=== PATIENT | male | born 1985 | race Two or more races ===

== ENCOUNTER 2022-11-01 15:07 | Emergency (ER) | payer MEDICAID, OTHER ==
[~2022-11-01] VITALS: Ht 165.1 cm; Wt 68.0 kg
[2022-11-01] MEDS ORDERED: HYDROcodone-ACET 10/325MG TAB PO ONE (16:30)
[2022-11-01] MEDS ORDERED: IBU600T PO (16:35)
[2022-11-01 17:23] VITALS: BP 126/75
== END 2022-11-01 17:25 | disposition home or self-care (01) ==
LOC: ER 15:07 → EDBD 15:07 → ER 17:23
DX: R51.9 Headache, unspecified (principal); F12.10 Cannabis abuse, uncomplicated
CPT/HCPCS: 70450; 71045